=== PATIENT | male | born 1955 | race Caucasian/White ===

== ENCOUNTER 2023-09-22 13:41 | Emergency (ER) | payer MEDICARE, OTHER ==
[2023-09-22 15:22] LABS: CORONAVIRUS COVID-19 NAA POSITIVE (NEGATIVE); INFLUENZA A NAA NEGATIVE (NEGATIVE); INFLUENZA B NAA NEGATIVE (NEGATIVE)
== END 2023-09-22 16:40 | disposition home or self-care (01) ==
LOC: MW.ED 13:41
DX: U07.1 COVID-19 (principal); J40 Bronchitis, not specified as acute or chronic; I10 Essential (primary) hypertension; Z88.0 Allergy status to penicillin; Z79.899 Other long term (current) drug therapy
CPT/HCPCS: 0240U; 71045; 99283